=== PATIENT | female | born 1965 | race African-American/Black ===

== ENCOUNTER 2017-08-17 13:23 | Emergency (ER) | payer MEDICAID ==
[~2017-08-17] VITALS: Ht 162.6 cm; Wt 81.0 kg
[~2017-08-17 13:23] MED LIST: CARI350T19 PO; CLON1TAB PO; FIORIC PO; GABA300C3 PO; GABA600T PO; HYDR-3129 PO; HYDR-3535 PO; LEVE500 PO; PROP80C PO; PROP80CA PO; SOMA350T PO
[2017-08-17 13:30] VITALS: BP 156/94; PULSE 70; RESP 17; TEMP 98.3; O2SAT 100
[2017-08-17] MEDS ORDERED: PROP80TA PO (14:30)
[2017-08-17] MEDS ORDERED: ASPIRIN 325 MG/CAFFEINE 40 MG/BUTALBITAL 50 MG CAP PO ONE (14:30)
[2017-08-17] MEDS ORDERED: BUTA1CAP PO (14:51)
--- NOTE | 2017-08-17 14:51 | PD ---
HPI Chief Complaint: Head Injury Time Seen by Provider: 14:16 Travel History International Travel<30 days: No Contact w/Intl Traveler<30days: No Traveled to known affect area: No History of Present Illness HPI 52-year-old female arrives complaining of headache. She reports striking the right parietal occipital scalp against a metal bar 3 months ago. A very brief loss of consciousness occurred, less than a second or 2. Since then she reports nausea and occasional vomiting. She also feels as though she has lost sensation about the parieto-occipital scalp on the right side. She also notes some pain in the right forehead and upon pressing the right forehead feels pain radiating to the vertex of the scalp. She also reports some stiffening of the neck. No loss of consciousness has occurred. The patient reports poor compliance with migraine medications, Imitrex or Fioricet, due to not having any available. PFSH Past Medical History Autoimmune Disease: Yes (FIBROMYALGIA) Anxiety: Yes Depression: Yes Cancer: No Cardiovascular Problems: No Cerebrovascular Accident: No Diminished Hearing: No Endocrine: No Gastrointestinal Disorders: Yes Genitourinary: No Headaches: Yes Hypertension: Yes Musculoskeletal: Yes (CHRONIC NECK/BACK PAIN) Neurologic: Yes Psychiatric: Yes Reproductive: No Respiratory: Yes Immunizations Current: Yes Migraines: Yes Seizures: Yes Tetanus Vaccination: Unknown ?: Not Menopausal: Yes : 6 Para: 5 Miscarriage: 1 Tubal Ligation: Yes Past Surgical History Abdominal Surgery: Yes (HERNIA REPAIR) Cholecystectomy: Yes Other Surgery: Yes Social History Alcohol Use: No Tobacco Use: No Substance Use: No Allergies-Medications (Allergen,Severity, Reaction): Coded Allergies: ibuprofen (Unverified Allergy, Severe, 08/17/17) iodine (Unverified Allergy, Severe, Swelling, 08/17/17) potassium iodide (Unverified Allergy, Severe, Swelling, 08/17/17) povidone-iodine (Unverified Allergy, Severe, Swelling, 08/17/17) sodium iodide (Unverified Allergy, Severe, Swelling, 08/17/17) sodium iodide (Unverified Allergy, Severe, Swelling, 08/17/17) acetaminophen (Unverified Allergy, Unknown, 08/17/17) phenytoin (Unverified Allergy, Unknown, 08/17/17) propoxyphene (Unverified Allergy, Unknown, 08/17/17) Reported Meds & Prescriptions Reported Meds & Active Scripts Active Fioricet (Yucnjdwnym-Nfjpknrevtcdk-Hmdpabta) 50-300-40 Mg Cap 1-2 Cap PO Q6H PRN Reported Propranolol (Propranolol HCl) 80 Mg Tab 80 Mg PO DAILY Review of Systems Except as stated in HPI: all other systems reviewed are Neg General / Constitutional: No: Fever Physical Exam Narrative GENERAL: 52-year-old female pleasant well-nourished well-developed mild/ moderate distress secondary to pain Vital Signs Date Time Temp Pulse Resp B/P (MAP) Pulse Ox O2 Delivery O2 Flow Rate FiO2 08/17/17 13:30 98.3 70 17 156/94 (114) 100 SKIN: Warm and dry. HEAD: Atraumatic. Normocephalic. There is minimal tenderness along the right forehead without soft tissue or bony deformity palpable. EYES: Pupils equal and round. No scleral icterus. No injection or drainage. ENT: No nasal bleeding or discharge. Mucous membranes pink and moist. NECK: Trachea midline. No JVD. There is a normal range of motion about the neck with normal rotation and flexion-extension. CARDIOVASCULAR: Regular rate and rhythm. RESPIRATORY: No accessory muscle use. Clear to auscultation. Breath sounds equal bilaterally. GASTROINTESTINAL: Abdomen soft, non-tender, nondistended. Hepatic and splenic margins not palpable. MUSCULOSKELETAL: Extremities without clubbing, cyanosis, or edema. No obvious deformities. NEUROLOGICAL: Awake and alert. No obvious cranial nerve deficits. Motor grossly within normal limits. Five out of 5 muscle strength in the arms and legs. Normal speech. PSYCHIATRIC: Appropriate mood and affect; insight and judgment normal. Data Data Last Documented VS Vital Signs Date Time Temp Pulse Resp B/P (MAP) Pulse Ox O2 Delivery O2 Flow Rate FiO2 08/17/17 16:01 14 08/17/17 13:30 98.3 70 156/94 (114) 100 Orders Orders Sbygx-Nndc-Sorkw 325-40-50 Mg (Fiorinal (08/17/17 14:30) Ct Brain W/O Iv Contrast(Rout) (08/17/17 14:21) MDM Medical Decision Making Medical Screen Exam Complete: Yes Emergency Medical Condition: Yes Medical Record Reviewed: Yes Differential Diagnosis Intracranial hemorrhage, cervical strain, migraine, complex migraine Narrative Course CT head: nothing acute Pt with combination of chronic migraines and postconcussive syndrome. Scripts as below. Patient reassured and ready for dc. Diagnosis Primary Impression: Cephalgia Qualified Codes: R51 - Headache Additional Impression: Postconcussive syndrome Referrals: Primary Care Physician call for appointment Med/Other Pt SpecificInfo: Prescription(s) given Scripts Ondansetron Odt (Zofran Odt) 4 Mg Tab 4 MG SL Q8HR Y for Nausea/Vomiting, #10 TAB 0 Refills Prov: Danielito Long MD 08/17/17 Qpoihuknyn-Gkgyndoclstdu-Jflhayig (Fioricet) 50-300-40 Mg Cap 1-2 CAP PO Q6H Y for HEADACHE, #20 CAP 0 Refills Prov: Danielito Long MD 08/17/17 Disposition: 01 DISCHARGE HOME Condition: Stable Danielito Long MD August 17, 2017 14:51
[2017-08-17 16:01] VITALS: RESP 14
--- NOTE | 2017-08-17 16:05 | RADRPT ---
EXAM DATE/TIME: 08/17/2017 15:40 [facility] COMPARISON: CT BRAIN W/O CONTRAST, May 23, 2014, 19:07. INDICATIONS : Patient hit head on metal bunk bed. Patient has frontal head pain. RADIATION DOSE: 56.35 CTDIvol (mGy) MEDICAL HISTORY : Seizures. Hypertension. SURGICAL HISTORY : Cholecystectomy. Tubal ligation.hernia repair ENCOUNTER: Initial ACUITY: 1 day PAIN SCALE: 7/10 LOCATION: cranial TECHNIQUE: Multiple contiguous axial images were obtained of the head. Using automated exposure control and adj ustment of the mA and/or kV according to patient size, radiation dose was kept as low as reasonably a chievable to obtain optimal diagnostic quality images. DICOM format image data is available electro nically for review and comparison. FINDINGS: CEREBRUM: The ventricles are normal for age. No evidence of midline shift, mass lesion, hemorrhage or acute in farction. No extra-axial fluid collections are seen. POSTERIOR FOSSA: The cerebellum and brainstem are intact. The 4th ventricle is midline. The cerebellopontine angle i s unremarkable. EXTRACRANIAL: The visualized portion of the orbits is intact. SKULL: The calvaria is intact. No evidence of skull fracture. CONCLUSION: Negative for acute process August De La Garza MD FACR on August 17, 2017 at 16:00 Board Certified Radiologist. This report was verified electronically.
[2017-08-17] MEDS ORDERED: ZOFR4TAB3 SL (16:20)
== END 2017-08-17 17:37 | disposition home or self-care (01) ==
LOC: NEPD 13:23
DX: F07.81 Postconcussional syndrome (principal); G43.919 Migraine, unspecified, intractable, without status migrainosus; F32.9 Major depressive disorder, single episode, unspecified; F41.9 Anxiety disorder, unspecified; I10 Essential (primary) hypertension; M79.7 Fibromyalgia
CPT/HCPCS: 70450